=== PATIENT | female | born 1990 | race Two or more races ===

== ENCOUNTER 2022-12-16 17:57 | Inpatient (IN) | payer MEDICAID, OTHER ==
[~2022-12-16] VITALS: Ht 162.6 cm; Wt 58.0 kg
[2022-12-16 19:07] LABS: Eosinophils # (auto) 0 10 ^3/uL (0-0.8); Eosinophils % (auto) 0.1 % (0.0-7.0)
[2022-12-16 19:10] LABS: Basophils # (auto) 0.1 10 ^3/uL (0-0.2); Basophils % (auto) 0.6 % (0.0-2.0); Hematocrit 28.8 % (36.0-46.0); Hemoglobin 9.7 g/dL (12.2-16.2); Lymphocytes # (auto) 0.8 10 ^3/uL (0.4-5.4); Lymphocytes % (auto) 5.9 % (10.0-50.0); Mean Corpuscular Hemoglobin 33.4 pg (28.0-32.0); Mean Corpuscular Hgb Conc. 33.6 g/dL (32.0-36.0); Mean Corpuscular Volume 99.4 fL (80.0-100.0); Monocytes % (auto) 7.1 % (0.0-12.0); Neutrophils # (auto) 11.9 10 ^3/uL (1.6-8.6); Neutrophils % (auto) 86.3 % (37.0-80.0); Nucleated Red Blood Cells % 0.1 %; White Blood Cell 13.8 10^3/uL (4.4-10.8)
[2022-12-16 19:55] LABS: Albumin 2.3 g/dL (3.4-5.0); Calcium 8.2 mg/dL (8.5-10.1); Potassium 3.8 mmol/L (3.5-5.1)
[2022-12-16 19:59] LABS: BUN/Creatinine Ratio 6.3 (10.0-20.0); Bilirubin, Total 7.3 mg/dL (0.2-1.0); Lactic Acid w/Reflex 5.9 mmol/L (0.4-2.0); Total Protein 8.4 g/dL (6.4-8.2)
[2022-12-16 21:58] LABS: INR 1.58 (0.9-1.15)
[2022-12-17] MEDS ORDERED: OXYCODONE W/ ACETAMINOPHEN 5/325MG TABLET PO ONE (03:45)
[2022-12-17] MEDS ORDERED: ONDANSETRON HCL 4 MG/2 ML VIAL IV PRN (06:15)
[2022-12-17] MEDS: SODIUM CHLORIDE 0.9% 1,000 ML IV SCH ×2 (06:40→20:30)
[2022-12-17 07:14] LABS: Basophils # (auto) 0.2 10 ^3/uL (0-0.2); Basophils % (auto) 1.2 % (0.0-2.0); Eosinophils # (auto) 0 10 ^3/uL (0-0.8); Hematocrit 27.9 % (36.0-46.0); Hemoglobin 9.4 g/dL (12.2-16.2); Lymphocytes # (auto) 0.9 10 ^3/uL (0.4-5.4); Lymphocytes % (auto) 6.2 % (10.0-50.0); Mean Corpuscular Hemoglobin 33.3 pg (28.0-32.0); Mean Corpuscular Hgb Conc. 33.7 g/dL (32.0-36.0); Mean Corpuscular Volume 98.9 fL (80.0-100.0); Monocytes # (auto) 1.2 10 ^3/uL (0-1.3); Monocytes % (auto) 8.4 % (0.0-12.0); Neutrophils # (auto) 11.5 10 ^3/uL (1.6-8.6); Neutrophils % (auto) 84.2 % (37.0-80.0); Red Blood Cells 2.82 10^6/uL (4.0-5.20); Red Cell Distribution Width 15.5 % (11.8-14.3); White Blood Cell 13.7 10^3/uL (4.4-10.8)
[2022-12-17 07:30] LABS: INR 1.79 (0.9-1.15); Partial Thromboplastin Time 37.6 sec (24.6-33.4)
[2022-12-17 07:32] LABS: Albumin 2.2 g/dL (3.4-5.0); Potassium 3.9 mmol/L (3.5-5.1)
[2022-12-17 07:35] LABS: BUN/Creatinine Ratio 6.2 (10.0-20.0); Bilirubin, Total 8.3 mg/dL (0.2-1.0); Total Protein 7.8 g/dL (6.4-8.2)
[2022-12-17] MEDS: PANTOPRAZOLE 40 MG/10 ML VIAL INJ IV SCH (09:58)
[2022-12-17 10:08] LABS: Urine Bacteria NONE SEEN /hpf (None Seen); Urine Blood TRACE /uL (Negative); Urine Mucus MANY (None Seen); Urine Specific Gravity 1.026 (1.001-1.035); Urine WBC 27 /hpf (0 - 5)
[2022-12-17] MEDS ORDERED: SODIUM CHLORIDE 0.9% 1,000 ML IV ONE (12:00)
[2022-12-17] MEDS: cefTRIAXone 1GM/50ML D5W 50 ML IV SCH (12:16)
[2022-12-17] MEDS: metroNIDAZOLE 500MG/100ML 100 ML IV SCH ×2 (13:45→22:17)
[2022-12-17] MEDS: FOLIC ACID 1 MG, MULTIPLE VITAMIN 10 ML, MAGNESIUM SULF SDV 50% 8 MEQ, THIAMINE INJ 100... INJ SCH ×5 (15:10)
[2022-12-17] MEDS: traMADol HCL 50 MG TAB PO PRN (20:22)
[2022-12-18 00:50] VITALS: BP 110/59
[2022-12-18 05:00] VITALS: BP 107/63
[2022-12-18 06:19] LABS: BUN/Creatinine Ratio 6.7 (10.0-20.0); Calcium 7.4 mg/dL (8.5-10.1); Potassium 3.2 mmol/L (3.5-5.1)
[2022-12-18] MEDS: metroNIDAZOLE 500MG/100ML 100 ML IV SCH ×3 (06:36→22:28)
[2022-12-18 07:59] LABS: Basophils # (auto) 0.1 10 ^3/uL (0-0.2); Hemoglobin 9.1 g/dL (12.2-16.2); Nucleated Red Blood Cells % 0.1 %
[2022-12-18 08:01] LABS: Basophils % (auto) 0.5 % (0.0-2.0); Eosinophils # (auto) 0.1 10 ^3/uL (0-0.8); Eosinophils % (auto) 0.4 % (0.0-7.0); Hematocrit 26.8 % (36.0-46.0); Lymphocytes # (auto) 1.3 10 ^3/uL (0.4-5.4); Lymphocytes % (auto) 9.6 % (10.0-50.0); Mean Corpuscular Hgb Conc. 34.1 g/dL (32.0-36.0); Mean Corpuscular Volume 99.8 fL (80.0-100.0); Monocytes # (auto) 1.1 10 ^3/uL (0-1.3); Monocytes % (auto) 7.9 % (0.0-12.0); Neutrophils % (auto) 81.6 % (37.0-80.0); Red Blood Cells 2.69 10^6/uL (4.0-5.20); White Blood Cell 13.4 10^3/uL (4.4-10.8)
[2022-12-18 09:00] VITALS: BP 109/65
[2022-12-18] MEDS: cefTRIAXone 1GM/50ML D5W 50 ML IV SCH (09:50)
[2022-12-18 10:03] LABS: Hepatitis A Ab IgM Negative; Hepatitis B Core IgM Negative
[2022-12-18] MEDS: PANTOPRAZOLE 40 MG/10 ML VIAL INJ IV SCH (10:03)
[2022-12-18 10:04] LABS: Hepatitis C Antibody Negative (Negative)
[2022-12-18] MEDS ORDERED: LORazepam 2MG/ML-1ML VIAL IV PRN (10:15)
[2022-12-18] MEDS ORDERED: POTASSIUM CHL 20 Meq TABLET PO ONE (10:15)
[2022-12-18] MEDS: traMADol HCL 50 MG TAB PO PRN (11:41)
[2022-12-18 13:00] VITALS: BP 105/57
[2022-12-18] MEDS: FOLIC ACID 1 MG, MULTIPLE VITAMIN 10 ML, MAGNESIUM SULF SDV 50% 8 MEQ, THIAMINE INJ 100... INJ SCH ×5 (16:27)
[2022-12-18 17:00] VITALS: BP 104/44
[2022-12-18] MEDS ORDERED: phytonadione 10 MG in SODIUM CHL 0.9% 50 ML IV ONE (19:00)
[2022-12-18] MEDS ORDERED: hydrOXYzine 25 MG TAB or CAP PO PRN (19:30)
[2022-12-18 22:00] VITALS: BP 102/66
[2022-12-18] MEDS: methylPREDNISolone SOD SUCC 40 MG/ML VL IV SCH (22:29)
[2022-12-18] MEDS: MIRTAZAPINE 30 MG TAB PO SCH (22:29)
[2022-12-19 05:00] VITALS: BP 100/56
[2022-12-19 06:07] LABS: Basophils # (auto) 0 10 ^3/uL (0-0.2); Basophils % (auto) 0.2 % (0.0-2.0); Eosinophils # (auto) 0 10 ^3/uL (0-0.8); Lymphocytes # (auto) 0.3 10 ^3/uL (0.4-5.4); Lymphocytes % (auto) 3.2 % (10.0-50.0); Monocytes # (auto) 0.3 10 ^3/uL (0-1.3); Monocytes % (auto) 2.8 % (0.0-12.0); Neutrophils # (auto) 9.1 10 ^3/uL (1.6-8.6); Neutrophils % (auto) 93.8 % (37.0-80.0)
[2022-12-19 06:20] LABS: Albumin 1.9 g/dL (3.4-5.0); Calcium 7.7 mg/dL (8.5-10.1); Potassium 4.2 mmol/L (3.5-5.1)
[2022-12-19 06:25] LABS: BUN/Creatinine Ratio 5.2 (10.0-20.0); Total Protein 7.2 g/dL (6.4-8.2)
[2022-12-19] MEDS: metroNIDAZOLE 500MG/100ML 100 ML IV SCH ×3 (06:27→21:46)
[2022-12-19 07:15] LABS: Hemoglobin 9.1 g/dL (12.2-16.2); Red Blood Cells 2.68 10^6/uL (4.0-5.20); White Blood Cell 11.5 10^3/uL (4.4-10.8)
[2022-12-19 07:16] LABS: Mean Corpuscular Hemoglobin 33.8 pg (28.0-32.0); Mean Corpuscular Hgb Conc. 33.6 g/dL (32.0-36.0); Mean Corpuscular Volume 100.7 fL (80.0-100.0)
[2022-12-19 08:49] VITALS: BP 96/50
[2022-12-19] MEDS: cefTRIAXone 1GM/50ML D5W 50 ML IV SCH (09:07)
[2022-12-19] MEDS: methylPREDNISolone SOD SUCC 40 MG/ML VL IV SCH ×2 (09:08→21:46)
[2022-12-19] MEDS: PANTOPRAZOLE 40 MG/10 ML VIAL INJ IV SCH (09:08)
[2022-12-19] MEDS ORDERED: SPIRONOLACTONE 25 MG TAB PO ONE (11:00)
[2022-12-19] MEDS: FOLIC ACID 1 MG, MULTIPLE VITAMIN 10 ML, MAGNESIUM SULF SDV 50% 8 MEQ, THIAMINE INJ 100... INJ SCH ×5 (12:47)
[2022-12-19 13:00] VITALS: BP 96/55
[2022-12-19] MEDS ORDERED: phytonadione 10 MG in SODIUM CHL 0.9% 50 ML IV ONE (16:45)
[2022-12-19 17:00] VITALS: BP 105/69
[2022-12-19] MEDS: traMADol HCL 50 MG TAB PO PRN (17:11)
[2022-12-19] MEDS: MIRTAZAPINE 30 MG TAB PO SCH (21:46)
[2022-12-19 22:00] VITALS: BP 105/66
[2022-12-19 23:14] LABS: INR 2.07 (0.9-1.15)
[2022-12-20 05:00] VITALS: BP 108/71
[2022-12-20 05:36] LABS: Basophils # (auto) 0 10 ^3/uL (0-0.2); Basophils % (auto) 0.1 % (0.0-2.0); Eosinophils # (auto) 0 10 ^3/uL (0-0.8); Mean Corpuscular Volume 102.7 fL (80.0-100.0); Monocytes # (auto) 1.1 10 ^3/uL (0-1.3); Monocytes % (auto) 7.2 % (0.0-12.0)
[2022-12-20 05:39] LABS: Hematocrit 26.8 % (36.0-46.0); Lymphocytes # (auto) 0.8 10 ^3/uL (0.4-5.4); Lymphocytes % (auto) 5.6 % (10.0-50.0); Mean Corpuscular Hemoglobin 34.6 pg (28.0-32.0); Mean Corpuscular Hgb Conc. 33.7 g/dL (32.0-36.0); Neutrophils # (auto) 13.2 10 ^3/uL (1.6-8.6); Neutrophils % (auto) 87.1 % (37.0-80.0); Nucleated Red Blood Cells % 0.2 %; Red Blood Cells 2.61 10^6/uL (4.0-5.20); Red Cell Distribution Width 16.5 % (11.8-14.3); White Blood Cell 15.2 10^3/uL (4.4-10.8)
[2022-12-20] MEDS: metroNIDAZOLE 500MG/100ML 100 ML IV SCH ×3 (05:40→21:59)
[2022-12-20 05:52] LABS: Potassium 3.5 mmol/L (3.5-5.1)
[2022-12-20 06:12] LABS: Albumin 1.8 g/dL (3.4-5.0); BUN/Creatinine Ratio 7.5 (10.0-20.0); Bilirubin, Total 6.4 mg/dL (0.2-1.0); Calcium 7.9 mg/dL (8.5-10.1); Total Protein 6.9 g/dL (6.4-8.2)
[2022-12-20 08:00] VITALS: BP 103/68
[2022-12-20 09:10] VITALS: BP 108/71
[2022-12-20] MEDS: SPIRONOLACTONE 25 MG TAB PO SCH (11:18)
[2022-12-20] MEDS: PANTOPRAZOLE 40 MG/10 ML VIAL INJ IV SCH (11:18)
[2022-12-20] MEDS: cefTRIAXone 1GM/50ML D5W 50 ML IV SCH (11:18)
[2022-12-20] MEDS: methylPREDNISolone SOD SUCC 40 MG/ML VL IV SCH ×2 (11:19→21:53)
[2022-12-20] MEDS: FOLIC ACID 1 MG, MULTIPLE VITAMIN 10 ML, MAGNESIUM SULF SDV 50% 8 MEQ, THIAMINE INJ 100... INJ SCH ×5 (13:31)
[2022-12-20 13:46] VITALS: BP 103/68
[2022-12-20 16:44] VITALS: BP 109/66
[2022-12-20] MEDS: traMADol HCL 50 MG TAB PO PRN (20:27)
[2022-12-20] MEDS: MIRTAZAPINE 30 MG TAB PO SCH (21:53)
[2022-12-20 22:00] VITALS: BP 112/69
[2022-12-21 04:09] LABS: Basophils # (auto) 0 10 ^3/uL (0-0.2); Basophils % (auto) 0.1 % (0.0-2.0); Eosinophils # (auto) 0 10 ^3/uL (0-0.8); Mean Corpuscular Volume 102.9 fL (80.0-100.0); Red Blood Cells 2.72 10^6/uL (4.0-5.20)
[2022-12-21 04:12] LABS: Hematocrit 27.9 % (36.0-46.0); Hemoglobin 9.3 g/dL (12.2-16.2); Lymphocytes # (auto) 0.8 10 ^3/uL (0.4-5.4); Lymphocytes % (auto) 4.9 % (10.0-50.0); Mean Corpuscular Hemoglobin 34.1 pg (28.0-32.0); Mean Corpuscular Hgb Conc. 33.2 g/dL (32.0-36.0); Monocytes # (auto) 1.1 10 ^3/uL (0-1.3); Monocytes % (auto) 7.4 % (0.0-12.0); Neutrophils # (auto) 13.5 10 ^3/uL (1.6-8.6); Neutrophils % (auto) 87.6 % (37.0-80.0); Red Cell Distribution Width 17.3 % (11.8-14.3); White Blood Cell 15.4 10^3/uL (4.4-10.8)
[2022-12-21 04:32] LABS: INR 1.75 (0.9-1.15)
[2022-12-21 04:39] LABS: Albumin 1.6 g/dL (3.4-5.0); Calcium 7.7 mg/dL (8.5-10.1); Potassium 3.6 mmol/L (3.5-5.1)
[2022-12-21 04:41] LABS: BUN/Creatinine Ratio 8.5 (10.0-20.0)
[2022-12-21 04:44] LABS: Bilirubin, Total 5.4 mg/dL (0.2-1.0); Total Protein 6.9 g/dL (6.4-8.2)
[2022-12-21 05:00] VITALS: BP 101/68
[2022-12-21] MEDS: metroNIDAZOLE 500MG/100ML 100 ML IV SCH ×2 (05:27→14:00)
[2022-12-21 08:00] VITALS: BP 97/59
[2022-12-21] MEDS: cefTRIAXone 1GM/50ML D5W 50 ML IV SCH (08:05)
[2022-12-21] MEDS: SPIRONOLACTONE 25 MG TAB PO SCH (08:14)
[2022-12-21] MEDS: PANTOPRAZOLE 40 MG/10 ML VIAL INJ IV SCH (08:15)
[2022-12-21] MEDS: methylPREDNISolone SOD SUCC 40 MG/ML VL IV SCH (08:20)
[2022-12-21 09:00] VITALS: BP 97/59
[2022-12-21] MEDS ORDERED: HYDR-3682 PO (09:35)
[2022-12-21] MEDS ORDERED: CEPH250C PO (09:35)
[2022-12-21] MEDS ORDERED: MIRT1TAB PO (09:35)
[2022-12-21] MEDS ORDERED: SPIR25TA PO (09:35)
[2022-12-21] MEDS: FOLIC ACID 1 MG, MULTIPLE VITAMIN 10 ML, MAGNESIUM SULF SDV 50% 8 MEQ, THIAMINE INJ 100... INJ SCH ×5 (12:00)
[2022-12-21 13:00] VITALS: BP 107/66
[2022-12-21 14:14] VITALS: BP 107/66
[2022-12-22] MEDS ORDERED: methylPREDNISolone SOD SUCC 40 MG/ML VL IV SCH (10:00)
== END 2022-12-21 16:46 | disposition home or self-care (01) | DRG 280 ==
LOC: ER 18:00 → OVERFLOW 12-17 06:08 → CENTRAL 12-17 20:30
PROVIDERS: ADMIT Nurse Practitioner; ATTEND Internal Medicine
DX: K70.11 Alcoholic hepatitis with ascites (principal); A41.9 Sepsis, unspecified organism; E43 Unspecified severe protein-calorie malnutrition; E87.20 Acidosis, unspecified; D69.6 Thrombocytopenia, unspecified; K74.60 Unspecified cirrhosis of liver; F33.1 Major depressive disorder, recurrent, moderate; D64.9 Anemia, unspecified; K72.00 Acute and subacute hepatic failure without coma; F10.20 Alcohol dependence, uncomplicated; K52.9 Noninfective gastroenteritis and colitis, unspecified; F41.9 Anxiety disorder, unspecified; K76.0 Fatty (change of) liver, not elsewhere classified; N39.0 Urinary tract infection, site not specified; B96.20 Unspecified Escherichia coli [E. coli] as the cause of diseases classified elsewhere; Z68.1 Body mass index [BMI] 19.9 or less, adult
CPT/HCPCS: 36415; 74176; 76705; 80048; 80053; 80074; 80320; 81001; 82140; 83605; 83690; 83880; 85025; 85610; 85652; 85730; 87040; 87045; 87086; 87088; 87186; 87427; C9113; G0378; J0696; J3430; J3490

== ENCOUNTER 2023-04-03 11:12 | Emergency (ER) | payer MEDICAID ==
[~2023-04-03] VITALS: Ht 162.6 cm; Wt 59.0 kg
[~2023-04-03 11:12] MED LIST: CEPH250C PO; HYDR-3682 PO; MIRT1TAB PO; SPIR25TA PO
[2023-04-03] MEDS ORDERED: ONDANSETRON HCL 4 MG/2 ML VIAL IV ONE (11:30)
[2023-04-03] MEDS ORDERED: THIAMINE 100mg/ml INJ (200mg/2ml VIAL) IV ONE (11:30)
[2023-04-03] MEDS ORDERED: SODIUM CHLORIDE 0.9% 1,000 ML IV ONE ×2 (11:30)
[2023-04-03 11:33] LABS: Basophils # (auto) 0 10 ^3/uL (0-0.2); Basophils % (auto) 0.3 % (0.0-2.0); Eosinophils # (auto) 0 10 ^3/uL (0-0.8); Hematocrit 28.7 % (36.0-46.0); Monocytes # (auto) 0.5 10 ^3/uL (0-1.3)
[2023-04-03 11:35] LABS: Hemoglobin 9.3 g/dL (12.2-16.2); Lymphocytes # (auto) 1.3 10 ^3/uL (0.4-5.4); Lymphocytes % (auto) 12.5 % (10.0-50.0); Mean Corpuscular Hemoglobin 26.6 pg (28.0-32.0); Mean Corpuscular Hgb Conc. 32.5 g/dL (32.0-36.0); Mean Corpuscular Volume 81.7 fL (80.0-100.0); Monocytes % (auto) 4.7 % (0.0-12.0); Neutrophils # (auto) 8.4 10 ^3/uL (1.6-8.6); Neutrophils % (auto) 82.5 % (37.0-80.0); Nucleated Red Blood Cells % 0.1 %; Red Blood Cells 3.52 10^6/uL (4.0-5.20); Red Cell Distribution Width 21.3 % (11.8-14.3); White Blood Cell 10.2 10^3/uL (4.4-10.8)
[2023-04-03 12:08] LABS: Alanine Aminotransferase 74 U/L (7-40); Albumin 4.1 g/dL (3.2-4.8); Alkaline Phosphatase 126 U/L (46-116); Anion Gap 13 (5-15); Aspartate Aminotransferase 169 U/L (13-40); BUN/Creatinine Ratio 12.4 (10.0-20.0); Blood Alcohol < 3.0 mg/dL (<10); Blood Urea Nitrogen 11 mg/dL (9-23); Carbon Dioxide 24 mmol/L (20-30); Chloride 104 mmol/L (98-107); Glucose 171 mg/dL (74-106); Sodium 141 mmol/L (136-145)
[2023-04-03 12:09] LABS: Bilirubin, Total 2.5 mg/dL (0.2-1.0); Total Protein 8.1 g/dL (5.7-8.2)
[2023-04-03 12:11] LABS: Potassium 2.9 mmol/L (3.5-5.1)
[2023-04-03 13:39] LABS: Urine Bacteria NONE SEEN /hpf (None Seen); Urine Blood Negative /uL (Negative); Urine Clarity HAZY (Clear); Urine Color Yellow (Yellow); Urine Mucus FEW (None Seen); Urine Protein, UAD 1+ (Negative); Urine Specific Gravity 1.024 (1.001-1.035); Urine WBC 21 /hpf (0 - 5); Urine pH 6.5 (5.0-8.0)
[2023-04-03] MEDS: POTASSIUM CHL 20MEQ/100ML 100 ML IV SCH ×2 (16:39→19:07)
[2023-04-03 21:28] LABS: Chloride 107 mmol/L (98-107); Potassium 3.6 mmol/L (3.5-5.1); Sodium 139 mmol/L (136-145)
[2023-04-03 21:29] LABS: Anion Gap 8 (5-15); Calcium 9.2 mg/dL (8.7-10.4); Carbon Dioxide 24 mmol/L (20-30)
[2023-04-03 21:34] LABS: BUN/Creatinine Ratio 10.3 (10.0-20.0); Blood Urea Nitrogen 9 mg/dL (9-23); Glucose 103 mg/dL (74-106)
[2023-04-03] MEDS ORDERED: LORazepam 2MG/ML-1ML VIAL IV ONE (23:30)
[2023-04-03] MEDS ORDERED: ACETAMINOPHEN 500 MG TAB PO ONE (23:30)
[2023-04-04 08:00] VITALS: PULSE 94
[2023-04-04] MEDS ORDERED: cefTRIAXone SOD 1,000 MG VL IM ONE (10:45)
[2023-04-04] MEDS ORDERED: cefTRIAXone 1GM/50ML D5W 50 ML IV ONE (11:45)
[2023-04-04] MEDS ORDERED: ACETAMINOPHEN 500 MG TAB PO ONE (15:15)
[2023-04-04 20:30] VITALS: PULSE 98; RESP 18; O2SAT 96
[2023-04-04] MEDS ORDERED: MIRTAZAPINE 30 MG TAB PO SCH (22:00)
[2023-04-05 07:48] VITALS: RESP 15; O2SAT 98
[2023-04-05] MEDS ORDERED: ACETAMINOPHEN 500 MG TAB PO ONE (16:45)
[2023-04-05 18:42] VITALS: BP 128/70; PULSE 100; RESP 15; TEMP 98.2; O2SAT 98
== END 2023-04-05 19:15 | disposition short-term general hospital (02) ==
LOC: EDBD 11:12 → ER 11:12
DX: R45.851 Suicidal ideations (principal); R10.2 Pelvic and perineal pain; R74.8 Abnormal levels of other serum enzymes; F10.10 Alcohol abuse, uncomplicated; F32.9 Major depressive disorder, single episode, unspecified; Z90.49 Acquired absence of other specified parts of digestive tract; Y90.9 Presence of alcohol in blood, level not specified
CPT/HCPCS: 36415; 80048; 80053; 80320; 81001; 84702; 85025; 96361; 96365; 96375; 99285; J0696; J2060; J2405; J3411; J3480; J7030

== ENCOUNTER 2023-06-22 14:20 | Emergency (ER) | payer MEDICAID ==
[~2023-06-22] VITALS: Ht 162.6 cm; Wt 56.0 kg
[2023-06-22] MEDS ORDERED: SODIUM CHLORIDE 0.9% 1,000 ML IV ONE (14:45)
[2023-06-22] MEDS ORDERED: ONDANSETRON HCL 4 MG/2 ML VIAL IV ONE (15:15)
[2023-06-22] MEDS ORDERED: SODIUM CHLORIDE 0.9% 1,000 ML IVB ONE (15:15)
[2023-06-22] MEDS ORDERED: THIAMINE 100mg/ml INJ (200mg/2ml VIAL) IV ONE (15:15)
[2023-06-22 15:54] LABS: Acetaminophen < 2.0 UG/ML (10.0-20.0)
[2023-06-22 15:58] LABS: Alanine Aminotransferase 79 U/L (7-40); Albumin 4.3 g/dL (3.2-4.8); Alkaline Phosphatase 180 U/L (46-116); Anion Gap 16 (5-15); Aspartate Aminotransferase 187 U/L (13-40); BUN/Creatinine Ratio 10.1 (10.0-20.0); Basophils # (auto) 0 10 ^3/uL (0-0.2); Basophils % (auto) 0.4 % (0.0-2.0); Blood Urea Nitrogen 9 mg/dL (9-23); Calcium 8.8 mg/dL (8.7-10.4); Carbon Dioxide 18 mmol/L (20-30); Chloride 103 mmol/L (98-107); Eosinophils # (auto) 0 10 ^3/uL (0-0.8); Eosinophils % (auto) 0.2 % (0.0-7.0); Glucose 138 mg/dL (74-106); Lymphocytes # (auto) 0.5 10 ^3/uL (0.4-5.4); Lymphocytes % (auto) 18.9 % (10.0-50.0); Mean Corpuscular Hemoglobin 30.3 pg (28.0-32.0); Mean Corpuscular Hgb Conc. 32.4 g/dL (32.0-36.0); Mean Corpuscular Volume 93.6 fL (80.0-100.0); Monocytes # (auto) 0.3 10 ^3/uL (0-1.3); Neutrophils # (auto) 1.8 10 ^3/uL (1.6-8.6); Neutrophils % (auto) 68.5 % (37.0-80.0); Nucleated Red Blood Cells % 0.3 %; Potassium 3.4 mmol/L (3.5-5.1); Red Blood Cells 3.96 10^6/uL (4.0-5.20); Sodium 137 mmol/L (136-145); Total Protein 8.8 g/dL (5.7-8.2); White Blood Cell 2.6 10^3/uL (4.4-10.8)
[2023-06-22 16:00] VITALS: PULSE 99; RESP 18; O2SAT 96
[2023-06-22 16:02] LABS: Salicylate < 3.0 mg/dL (2.8-20.0)
[2023-06-22 19:05] LABS: Urine Bacteria FEW /hpf (None Seen); Urine Blood Negative /uL (Negative); Urine Clarity Clear (Clear); Urine Color Yellow (Yellow); Urine Mucus FEW (None Seen); Urine Protein, UAD TRACE (Negative); Urine Specific Gravity 1.011 (1.001-1.035); Urine Urobilinogen Normal (Negative); Urine WBC <1 /hpf (0 - 5)
[2023-06-22 19:17] LABS: Amphetamine Screen, Urine Neg (NEGATIVE); Barbiturate Scree,Urine Neg (NEGATIVE); Benzodiazephine Screen, Urine Neg (NEGATIVE); Cocaine Screen, Urine Neg (NEGATIVE); Opiate Scree,Urine Neg (NEGATIVE)
[2023-06-22 19:18] LABS: Cannabinoid Screen, Urine Neg (NEGATIVE); Phencyclidine Screen, Urine Neg (NEGATIVE)
[2023-06-22 19:36] LABS: Alanine Aminotransferase 67 U/L (7-40); Albumin 3.9 g/dL (3.2-4.8); Alkaline Phosphatase 155 U/L (46-116); Anion Gap 12 (5-15); Aspartate Aminotransferase 163 U/L (13-40); BUN/Creatinine Ratio 6.5 (10.0-20.0); Blood Urea Nitrogen 5 mg/dL (9-23); Carbon Dioxide 19 mmol/L (20-30); Chloride 109 mmol/L (98-107); Glucose 104 mg/dL (74-106); Potassium 3.5 mmol/L (3.5-5.1); Sodium 140 mmol/L (136-145)
[2023-06-22 19:37] LABS: Bilirubin, Total 1.7 mg/dL (0.2-1.0); Total Protein 8.1 g/dL (5.7-8.2)
[2023-06-22 22:37] LABS: Alanine Aminotransferase 63 U/L (7-40); Albumin 3.8 g/dL (3.2-4.8); Alkaline Phosphatase 151 U/L (46-116); Anion Gap 11 (5-15); Aspartate Aminotransferase 155 U/L (13-40); Calcium 8.2 mg/dL (8.7-10.4); Carbon Dioxide 20 mmol/L (20-30); Chloride 108 mmol/L (98-107); Glucose 102 mg/dL (74-106); Potassium 3.6 mmol/L (3.5-5.1); Sodium 139 mmol/L (136-145)
[2023-06-22 22:38] LABS: BUN/Creatinine Ratio 6.3 (10.0-20.0); Bilirubin, Total 1.7 mg/dL (0.2-1.0); Blood Urea Nitrogen < 5 mg/dL (9-23)
[2023-06-22 22:48] VITALS: PULSE 108; RESP 25; O2SAT 94
[2023-06-23] MEDS ORDERED: ACETAMINOPHEN 325 MG TAB PO ONE (01:15)
[2023-06-23 02:49] LABS: Alanine Aminotransferase 63 U/L (7-40); Albumin 3.8 g/dL (3.2-4.8); Alkaline Phosphatase 151 U/L (46-116); Anion Gap 12 (5-15); Aspartate Aminotransferase 148 U/L (13-40); BUN/Creatinine Ratio 5.9 (10.0-20.0); Bilirubin, Total 1.6 mg/dL (0.2-1.0); Blood Urea Nitrogen 5 mg/dL (9-23); Calcium 8.3 mg/dL (8.7-10.4); Carbon Dioxide 20 mmol/L (20-30); Chloride 107 mmol/L (98-107); Glucose 97 mg/dL (74-106); Potassium 3.4 mmol/L (3.5-5.1); Sodium 139 mmol/L (136-145)
[2023-06-23 07:25] VITALS: BP 128/55; PULSE 109; RESP 17; TEMP 98.2; O2SAT 98
== END 2023-06-23 08:20 | disposition still patient (30) ==
LOC: ER 14:20
DX: F10.129 Alcohol abuse with intoxication, unspecified (principal); F32.9 Major depressive disorder, single episode, unspecified; Z98.890 Other specified postprocedural states; Z79.899 Other long term (current) drug therapy; Y90.0 Blood alcohol level of less than 20 mg/100 ml
CPT/HCPCS: 36415; 80053; 80307; 80320; 80329; 81001; 83930; 85025; 96361; 96374; 96375; 99285; J2405; J3411; J7030

== ENCOUNTER 2023-08-28 19:05 | Emergency (ER) | payer MEDICAID ==
[~2023-08-28] VITALS: Ht 162.6 cm; Wt 61.5 kg
[2023-08-28] MEDS: SODIUM CHLORIDE 0.9% 2,000 ML IV ONE (20:32)
[2023-08-28] MEDS: THIAMINE 100mg/ml INJ (200mg/2ml VIAL) IV ONE (20:50)
[2023-08-28] MEDS: ONDANSETRON HCL 4 MG/2 ML VIAL IV ONE (20:50)
[2023-08-28 21:16] LABS: Eosinophils # (auto) 0 10 ^3/uL (0-0.8); Monocytes # (auto) 0.5 10 ^3/uL (0-1.3)
[2023-08-28 21:17] LABS: Basophils # (auto) 0.1 10 ^3/uL (0-0.2); Basophils % (auto) 0.6 % (0.0-2.0); Hematocrit 37.2 % (36.0-46.0); Hemoglobin 12.7 g/dL (12.2-16.2); Lymphocytes # (auto) 0.9 10 ^3/uL (0.4-5.4); Lymphocytes % (auto) 11.1 % (10.0-50.0); Mean Corpuscular Hemoglobin 31.3 pg (28.0-32.0); Mean Corpuscular Volume 91.9 fL (80.0-100.0); Monocytes % (auto) 5.7 % (0.0-12.0); Neutrophils % (auto) 82.6 % (37.0-80.0); Red Blood Cells 4.05 10^6/uL (4.0-5.20); White Blood Cell 8.4 10^3/uL (4.4-10.8)
[2023-08-28 21:23] LABS: Chloride 104 mmol/L (98-107); Potassium 3.1 mmol/L (3.5-5.1); Sodium 140 mmol/L (136-145)
[2023-08-28 21:24] LABS: Anion Gap 15 (5-15); Calcium 10.2 mg/dL (8.5-10.1); Carbon Dioxide 21 mmol/L (20-30)
[2023-08-28 21:29] LABS: Blood Alcohol < 3.0 mg/dL (<10); Blood Urea Nitrogen 14 mg/dL (9-23); Glucose 155 mg/dL (74-106)
[2023-08-28 23:25] LABS: Urine Bacteria NONE SEEN /hpf (None Seen); Urine Blood TRACE /uL (Negative); Urine Clarity HAZY (Clear); Urine Color Yellow (Yellow); Urine Hyaline Cast MANY /lpf (0 - 2); Urine Mucus FEW (None Seen); Urine Protein, UAD 2+ (Negative); Urine Specific Gravity 1.027 (1.001-1.035); Urine Urobilinogen Normal (Negative); Urine WBC 8 /hpf (0 - 5); Urine pH 6.5 (5.0-8.0)
[2023-08-28 23:35] LABS: Amphetamine Screen, Urine Neg (NEGATIVE); Barbiturate Scree,Urine Neg (NEGATIVE); Benzodiazephine Screen, Urine Neg (NEGATIVE)
[2023-08-28 23:36] LABS: Cannabinoid Screen, Urine Pos (NEGATIVE); Cocaine Screen, Urine Neg (NEGATIVE); Opiate Scree,Urine Neg (NEGATIVE); Phencyclidine Screen, Urine Neg (NEGATIVE)
[2023-08-28] MEDS: NITROFURANTOIN 100 mg CAP PO ONE (23:52)
[2023-08-29] MEDS: KETOROLAC TROMETH 30 MG/ML 1ML VIAL IM ONE (01:05)
[2023-08-29] MEDS ORDERED: NITR-87 PO (01:29)
[2023-08-29] MEDS ORDERED: DICY10CA PO (01:29)
[2023-08-29] MEDS ORDERED: IBUP-1454 PO (01:29)
[2023-08-29] MEDS ORDERED: ZOFR4T PO (01:29)
[2023-08-29 05:30] VITALS: PULSE 100; RESP 21; O2SAT 96
[2023-08-29] MEDS: traMADol HCL 50 MG TAB PO ONE (05:39)
[2023-08-29 07:32] VITALS: TEMP 98.5
[2023-08-29 07:35] VITALS: PULSE 110; RESP 12; O2SAT 95
[2023-08-29] MEDS: POTASSIUM EFFERVESENT TAB 25 MEQ PO ONE (07:53)
[2023-08-29] MEDS: SODIUM CHLORIDE 0.9% 1,000 ML IVB ONE (08:35)
[2023-08-29] MEDS: LORazepam 2MG/ML-1ML VIAL IV ONE (08:44)
[2023-08-29 09:15] LABS: Magnesium 1.6 mg/dL (1.6-2.6)
[2023-08-29] MEDS ORDERED: HYDR-4902 PO (16:58)
[2023-08-29] MEDS ORDERED: LORazepam 2MG/ML-1ML VIAL IV ONE (17:00)
[2023-08-29 17:27] VITALS: BP 121/79; PULSE 101; RESP 15; O2SAT 95
== END 2023-08-29 17:44 | disposition home or self-care (01) ==
LOC: ER 19:05 → EDBD 19:05 → ER 08-29 17:44
DX: N39.0 Urinary tract infection, site not specified (principal); R10.2 Pelvic and perineal pain; F10.10 Alcohol abuse, uncomplicated; Z90.49 Acquired absence of other specified parts of digestive tract; Z79.899 Other long term (current) drug therapy
CPT/HCPCS: 36415; 80048; 80307; 80320; 81001; 83690; 83735; 84702; 85025; 93005; 96361; 96372; 96374; 96375; 99285; J1885; J2060; J2405; J3411; J7030; 74176

== ENCOUNTER 2024-02-15 17:37 | Inpatient (IN) | payer MEDICAID ==
[~2024-02-15] VITALS: Ht 162.6 cm; Wt 61.9 kg
[~2024-02-15 17:37] MED LIST changes: +DICY10CA PO; +HYDR-4902 PO; +IBUP-1454 PO; +NITR-87 PO; +ZOFR4T PO
[2024-02-15] MEDS: HYDROcodone-ACET 10/325MG TAB PO ONE (22:23)
[2024-02-16 00:30] VITALS: PULSE 103; RESP 17; O2SAT 98
[2024-02-16] MEDS: ONDANSETRON ODT 4 MG TAB PO ONE (00:56)
[2024-02-16] MEDS: SODIUM CHLORIDE 0.9% 1,000 ML IV ONE ×2 (03:52→12:15)
[2024-02-16] MEDS: ONDANSETRON HCL 4 MG/2 ML VIAL IV ONE ×2 (03:58→13:05)
[2024-02-16] MEDS: LORazepam 2MG/ML-1ML VIAL IV ONE (05:57)
[2024-02-16 06:39] LABS: Basophils # (auto) 0 10 ^3/uL (0-0.2); Basophils % (auto) 0.2 % (0.0-2.0); Eosinophils # (auto) 0 10 ^3/uL (0-0.8); Hematocrit 33.9 % (36.0-46.0); Hemoglobin 11.7 g/dL (12.2-16.2); Lymphocytes # (auto) 1.2 10 ^3/uL (0.4-5.4); Lymphocytes % (auto) 13.7 % (10.0-50.0); Mean Corpuscular Hemoglobin 31.4 pg (28.0-32.0); Mean Corpuscular Hgb Conc. 34.5 g/dL (32.0-36.0); Mean Corpuscular Volume 91.2 fL (80.0-100.0); Monocytes # (auto) 0.7 10 ^3/uL (0-1.3); Monocytes % (auto) 8.6 % (0.0-12.0); Neutrophils # (auto) 6.8 10 ^3/uL (1.6-8.6); Neutrophils % (auto) 77.5 % (37.0-80.0); Platelet Count (auto) 136 10^3/uL (140-450); Red Blood Cells 3.72 10^6/uL (4.0-5.20); White Blood Cell 8.7 10^3/uL (4.4-10.8)
[2024-02-16 06:53] LABS: Alanine Aminotransferase 172 U/L (7-40); Albumin 3.8 g/dL (3.2-4.8); Alkaline Phosphatase 179 U/L (46-116); Anion Gap 9 (5-15); Aspartate Aminotransferase 474 U/L (13-40); BUN/Creatinine Ratio 11.2 (10.0-20.0); Blood Urea Nitrogen 11 mg/dL (9-23); Calcium 8.1 mg/dL (8.7-10.4); Carbon Dioxide 23 mmol/L (20-30); Chloride 103 mmol/L (98-107); Glucose 111 mg/dL (74-106); Potassium 3.6 mmol/L (3.5-5.1); Sodium 135 mmol/L (136-145)
[2024-02-16 06:54] LABS: Bilirubin, Total 3.3 mg/dL (0.2-1.0); Total Protein 7.4 g/dL (5.7-8.2)
[2024-02-16 07:47] VITALS: RESP 18; O2SAT 98
[2024-02-16] MEDS: PANTOPRAZOLE 40 MG/10 ML VIAL INJ IV ONE (13:06)
[2024-02-16] MEDS ORDERED: DOCUSATE SOD 100 MG CAP PO PRN (14:00)
[2024-02-16] MEDS ORDERED: NITROGLYCERIN 0.4 MG SL TAB SL PRN (14:00)
[2024-02-16] MEDS: chlordiazePOXIDE HCL 25 MG CAP PO SCH (14:41)
[2024-02-16 16:20] LABS: Blood Alcohol < 3.0 mg/dL (<10)
[2024-02-16 16:57] LABS: Lipase 42 U/L (12-53)
[2024-02-16 22:54] LABS: INR 1.31 (0.9-1.15); Partial Thromboplastin Time 30.3 SEC (24.5-34.5); Prothrombin Time 13.6 sec (9.3-11.8)
[2024-02-17] MEDS: ONDANSETRON HCL 4 MG/2 ML VIAL IV PRN (01:20)
[2024-02-17] MEDS: MORPHINE SULFATE INJ 2 MG/ml SYRG IV PRN (01:21)
[2024-02-17 01:35] VITALS: PULSE 94; RESP 14; O2SAT 99
[2024-02-17 04:51] LABS: Amphetamine Screen, Urine Neg (NEGATIVE); Barbiturate Scree,Urine Neg (NEGATIVE); Benzodiazephine Screen, Urine Pos (NEGATIVE); Cannabinoid Screen, Urine Neg (NEGATIVE); Cocaine Screen, Urine Neg (NEGATIVE); Opiate Scree,Urine Pos (NEGATIVE); Phencyclidine Screen, Urine Neg (NEGATIVE)
[2024-02-17 04:59] LABS: Urine Bacteria FEW /hpf (None Seen); Urine Blood 3+ /uL (Negative); Urine Clarity Turbid (Clear); Urine Color Dark-Yellow (Yellow); Urine Mucus FEW (None Seen); Urine Protein, UAD 3+ (Negative); Urine Specific Gravity 1.026 (1.001-1.035); Urine Urobilinogen 12 mg/dL (Negative); Urine WBC 4 /hpf (0 - 5)
[2024-02-17 05:53] LABS: Basophils # (auto) 0 10 ^3/uL (0-0.2); Basophils % (auto) 0.2 % (0.0-2.0); Eosinophils # (auto) 0 10 ^3/uL (0-0.8); Eosinophils % (auto) 0.9 % (0.0-7.0); Hematocrit 32.4 % (36.0-46.0); Hemoglobin 11.3 g/dL (12.2-16.2); Lymphocytes # (auto) 1.4 10 ^3/uL (0.4-5.4); Mean Corpuscular Hemoglobin 32.4 pg (28.0-32.0); Mean Corpuscular Volume 92.6 fL (80.0-100.0); Monocytes # (auto) 0.4 10 ^3/uL (0-1.3); Monocytes % (auto) 7.3 % (0.0-12.0); Neutrophils # (auto) 3.1 10 ^3/uL (1.6-8.6); Neutrophils % (auto) 62.6 % (37.0-80.0); Platelet Count (auto) 87 10^3/uL (140-450); Red Blood Cells 3.49 10^6/uL (4.0-5.20); Red Cell Distribution Width 14.7 % (11.8-14.3); White Blood Cell 4.9 10^3/uL (4.4-10.8)
[2024-02-17 06:01] LABS: Alanine Aminotransferase 162 U/L (7-40); Albumin 3.6 g/dL (3.2-4.8); Alkaline Phosphatase 177 U/L (46-116); Anion Gap 6 (5-15); Aspartate Aminotransferase 420 U/L (13-40); BUN/Creatinine Ratio 7.9 (10.0-20.0); Blood Urea Nitrogen 9 mg/dL (9-23); Calcium 8.7 mg/dL (8.7-10.4); Carbon Dioxide 24 mmol/L (20-30); Chloride 104 mmol/L (98-107); Glucose 128 mg/dL (74-106); Potassium 3.2 mmol/L (3.5-5.1); Sodium 134 mmol/L (136-145)
[2024-02-17 06:02] LABS: Bilirubin, Total 3.2 mg/dL (0.2-1.0); Total Protein 6.9 g/dL (5.7-8.2)
[2024-02-17 07:28] VITALS: PULSE 100; RESP 14; O2SAT 96
[2024-02-17 08:39] LABS: Platelet Estimate Decreased
[2024-02-17] MEDS: chlordiazePOXIDE HCL 25 MG CAP PO SCH (10:05)
[2024-02-17] MEDS: SOD CHL 0.9%/ KCL 40MEQ 1,000 ML IV ONE (11:05)
[2024-02-17 20:00] VITALS: PULSE 99; RESP 16; O2SAT 96
[2024-02-18 04:06] LABS: Alanine Aminotransferase 139 U/L (7-40); Albumin 3.3 g/dL (3.2-4.8); Alkaline Phosphatase 170 U/L (46-116); Anion Gap 7 (5-15); Aspartate Aminotransferase 322 U/L (13-40); BUN/Creatinine Ratio 7.1 (10.0-20.0); Blood Urea Nitrogen 6 mg/dL (9-23); Calcium 8.5 mg/dL (8.7-10.4); Carbon Dioxide 25 mmol/L (20-30); Chloride 105 mmol/L (98-107); Glucose 87 mg/dL (74-106); Potassium 3.6 mmol/L (3.5-5.1); Sodium 137 mmol/L (136-145)
[2024-02-18 04:07] LABS: Bilirubin, Total 3.4 mg/dL (0.2-1.0); Total Protein 6.8 g/dL (5.7-8.2)
[2024-02-18] MEDS: LACTULOSE 20Gm/30ML SOLN PO PRN (07:13)
[2024-02-18 09:52] LABS: Hepatitis B Core Total AB Negative (Negative)
[2024-02-18] MEDS: THIAMINE HCL 100 MG TAB PO SCH (11:24)
[2024-02-18] MEDS: chlordiazePOXIDE HCL 25 MG CAP PO SCH (11:24)
[2024-02-18 12:03] LABS: Hepatitis A Ab IgM Negative; Hepatitis A Total Antibody Positive (Negative); Hepatitis B Core IgM Negative
[2024-02-18 12:04] LABS: Hepatitis B Surface Antibody Positive (Negative); Hepatitis B Surface Antigen Negative (Negative); Hepatitis C Antibody Negative (Negative)
[2024-02-18 13:06] LABS: Anti-Nuclear Antibody Direct Negative (Negative)
[2024-02-18] MEDS: D5W/LACTATED RINGERS 1,000 ML IV SCH (13:37)
[2024-02-18] MEDS: METOCLOPRAMIDE HCL 5MG/ml INJ 2ml VIAL IV PRN (14:57)
[2024-02-18 20:00] VITALS: BP 118/73; PULSE 101; PULSE 102; RESP 16; RESP 18; TEMP 98; O2SAT 95
[2024-02-19] VITALS (8 sets, daily range): BP systolic 107–117; BP diastolic 59–70; PULSE 65–101; RESP 16–18; TEMP 98.3–99.2; O2SAT 96–99
[2024-02-19] MEDS: chlordiazePOXIDE HCL 25 MG CAP PO SCH (05:45)
[2024-02-19 06:21] LABS: Alanine Aminotransferase 108 U/L (7-40); Alkaline Phosphatase 150 U/L (46-116); Anion Gap 5 (5-15); Calcium 8.6 mg/dL (8.7-10.4); Carbon Dioxide 28 mmol/L (20-30); Chloride 105 mmol/L (98-107); Glucose 99 mg/dL (74-106); Potassium 3.3 mmol/L (3.5-5.1); Sodium 138 mmol/L (136-145)
[2024-02-19 06:22] LABS: Albumin 3.1 g/dL (3.2-4.8); Aspartate Aminotransferase 214 U/L (13-40); Bilirubin, Total 3.5 mg/dL (0.2-1.0); Total Protein 6.3 g/dL (5.7-8.2)
[2024-02-19 06:24] LABS: BUN/Creatinine Ratio 6.9 (10.0-20.0); Blood Urea Nitrogen < 5 mg/dL (9-23)
[2024-02-19] MEDS: METOCLOPRAMIDE HCL 5MG/ml INJ 2ml VIAL IV ONE (11:45)
[2024-02-19] MEDS: POTASSIUM EFFERVESENT TAB 25 MEQ PO ONE ×2 (11:45→11:46)
[2024-02-19 12:54] LABS: Urine Bacteria MOD /hpf (None Seen); Urine Blood 3+ /uL (Negative); Urine Clarity Clear (Clear); Urine Color Yellow (Yellow); Urine Protein, UAD Negative (Negative); Urine Specific Gravity 1.006 (1.001-1.035); Urine Urobilinogen 3 mg/dL (Negative); Urine WBC <1 /hpf (0 - 5)
[2024-02-19] MEDS: POLYETHYLENE GLYCOL 17 GM PWDR PO ONE (13:24)
[2024-02-20 04:58] VITALS: BP 116/68; PULSE 86; RESP 18; TEMP 98; O2SAT 100
[2024-02-20 09:00] VITALS: BP 104/58; PULSE 94; RESP 18; TEMP 98; O2SAT 98
[2024-02-20 13:00] VITALS: BP 110/62; PULSE 92; RESP 18; TEMP 97.8; O2SAT 98
[2024-02-20 17:00] VITALS: BP 120/63; PULSE 90; RESP 22; TEMP 98.3; O2SAT 100
[2024-02-20] MEDS: POTASSIUM CHL 20 Meq TABLET PO ONE (17:53)
[2024-02-20] MEDS: cefTRIAXone 1GM/50ML D5W 50 ML IV ONE (17:54)
[2024-02-20 21:00] VITALS: BP 133/82; PULSE 111; RESP 18; TEMP 97.7; O2SAT 96
[2024-02-21 01:00] VITALS: BP 121/70; PULSE 86; RESP 17; TEMP 97.9; O2SAT 99
[2024-02-21 05:00] VITALS: BP 106/65; PULSE 87; RESP 17; TEMP 98.2; O2SAT 96
[2024-02-21 08:30] VITALS: RESP 12
[2024-02-21 09:00] VITALS: BP 109/69; PULSE 95; RESP 17; TEMP 98.7; O2SAT 97
[2024-02-21] MEDS: IOHEXOL 300 MG/ML 100ML BOTTLE IJ ONE (09:06)
[2024-02-21] MEDS: cefTRIAXone 1GM/50ML D5W 50 ML IV SCH (11:27)
[2024-02-21 13:00] VITALS: BP 110/60; PULSE 83; RESP 17; TEMP 97.9; O2SAT 96
[2024-02-21] MEDS: hydrOXYzine 25 MG TAB or CAP PO PRN (15:15)
[2024-02-21] MEDS ORDERED: CEPH250C PO (15:57)
[2024-02-21] MEDS ORDERED: HYDR25CA PO (15:57)
[2024-02-21] MEDS ORDERED: KETO2CRE4 TOP (15:57)
[2024-02-21 16:58] VITALS: BP 104/65; PULSE 80; RESP 17; TEMP 98.2; O2SAT 96
== END 2024-02-21 16:30 | disposition home or self-care (01) | DRG 280 ==
LOC: EDBD 17:37 → ER 17:37 → OVERFLOW 02-16 14:04 → CENTRAL 02-16 23:18 → OVERFLOW 02-16 23:59 → WEST WING 02-18 18:40
PROVIDERS: ADMIT Nurse Practitioner Family; ATTEND Internal Medicine
DX: K70.10 Alcoholic hepatitis without ascites (principal); N17.0 Acute kidney failure with tubular necrosis; G92.8 Other toxic encephalopathy; K76.6 Portal hypertension; D68.9 Coagulation defect, unspecified; R16.2 Hepatomegaly with splenomegaly, not elsewhere classified; D64.9 Anemia, unspecified; D69.59 Other secondary thrombocytopenia; K74.60 Unspecified cirrhosis of liver; B15.9 Hepatitis A without hepatic coma; K59.00 Constipation, unspecified; N39.0 Urinary tract infection, site not specified; F32.A Depression, unspecified; F41.9 Anxiety disorder, unspecified; F10.129 Alcohol abuse with intoxication, unspecified; E87.6 Hypokalemia; R31.29 Other microscopic hematuria; Y90.9 Presence of alcohol in blood, level not specified; F10.139 Alcohol abuse with withdrawal, unspecified; K76.0 Fatty (change of) liver, not elsewhere classified; Z79.1 Long term (current) use of non-steroidal anti-inflammatories (NSAID); Z79.899 Other long term (current) drug therapy; Z90.49 Acquired absence of other specified parts of digestive tract; Z82.49 Family history of ischemic heart disease and other diseases of the circulatory system; Y92.9 Unspecified place or not applicable; T51.0X1A Toxic effect of ethanol, accidental (unintentional), initial encounter
CPT/HCPCS: 36415; 74018; 74176; 74177; 76705; 80053; 80074; 80307; 80320; 81001; 81025; 82140; 82270; 83690; 85025; 85610; 85730; 86038; 86704; 86706; 86708; 86803; 87086; 87088; 87186; 87340; 96374; 96375; 99291; G0378; J2405; J2470; Q0162

== ENCOUNTER 2024-02-23 01:22 | Emergency (ER) | payer MEDICAID ==
[~2024-02-23] VITALS: Ht 160 cm; Wt 65.0 kg
[~2024-02-23 01:22] MED LIST changes: -DICY10CA PO; -HYDR-3682 PO; -HYDR-4902 PO; +HYDR25CA PO; -IBUP-1454 PO; +KETO2CRE4 TOP; -MIRT1TAB PO; -NITR-87 PO; -SPIR25TA PO; -ZOFR4T PO
[2024-02-23 01:27] VITALS: BP 139/85; PULSE 114; RESP 24; O2SAT 99
[2024-02-23] MEDS: LORazepam 2MG/ML-1ML VIAL IM ONE (01:50)
[2024-02-23 02:21] LABS: Alkaline Phosphatase 154 U/L (46-116)
[2024-02-23 02:22] LABS: Alanine Aminotransferase 90 U/L (7-40); Albumin 3.7 g/dL (3.2-4.8); Anion Gap 10 (5-15); Aspartate Aminotransferase 162 U/L (13-40); Bilirubin, Total 1.8 mg/dL (0.2-1.0); Carbon Dioxide 24 mmol/L (20-30); Chloride 110 mmol/L (98-107); Glucose 109 mg/dL (74-106); Potassium 3.1 mmol/L (3.5-5.1); Sodium 144 mmol/L (136-145); Total Protein 7.4 g/dL (5.7-8.2)
[2024-02-23 02:26] LABS: Basophils # (auto) 0 10 ^3/uL (0-0.2); Basophils % (auto) 0.7 % (0.0-2.0); Eosinophils # (auto) 0.1 10 ^3/uL (0-0.8); Eosinophils % (auto) 1.8 % (0.0-7.0); Hematocrit 36.5 % (36.0-46.0); Hemoglobin 12.3 g/dL (12.2-16.2); Lymphocytes # (auto) 2.5 10 ^3/uL (0.4-5.4); Lymphocytes % (auto) 43.3 % (10.0-50.0); Mean Corpuscular Hemoglobin 31.9 pg (28.0-32.0); Mean Corpuscular Hgb Conc. 33.7 g/dL (32.0-36.0); Mean Corpuscular Volume 94.6 fL (80.0-100.0); Monocytes # (auto) 0.5 10 ^3/uL (0-1.3); Monocytes % (auto) 8.7 % (0.0-12.0); Neutrophils # (auto) 2.7 10 ^3/uL (1.6-8.6); Neutrophils % (auto) 45.5 % (37.0-80.0); Platelet Count (auto) 130 10^3/uL (140-450); Red Blood Cells 3.85 10^6/uL (4.0-5.20); Red Cell Distribution Width 16.2 % (11.8-14.3); White Blood Cell 5.8 10^3/uL (4.4-10.8)
[2024-02-23 02:29] LABS: Blood Alcohol 350.3 mg/dL (<10)
[2024-02-23 02:33] LABS: Salicylate < 3.0 mg/dL (2.8-20.0)
[2024-02-23 02:42] LABS: BUN/Creatinine Ratio 7.4 (10.0-20.0); Blood Urea Nitrogen < 5 mg/dL (9-23)
[2024-02-23 03:23] LABS: Acetaminophen < 2.0 UG/ML (10.0-20.0)
[2024-02-23] MEDS ORDERED: SODIUM CHLORIDE 0.9% 3,000 ML IV ONE (04:30)
== END 2024-02-23 04:55 | disposition left against medical advice (07) ==
LOC: EDBD 01:22 → ER 01:22
DX: S09.8XXA Other specified injuries of head, initial encounter (principal); F10.129 Alcohol abuse with intoxication, unspecified; Z90.49 Acquired absence of other specified parts of digestive tract; Y90.8 Blood alcohol level of 240 mg/100 ml or more
CPT/HCPCS: 36415; 70450; 72125; 80053; 80320; 80329; 85025; 96372

== ENCOUNTER 2024-02-24 14:31 | Inpatient (IN) | payer MEDICAID ==
[~2024-02-24] VITALS: Ht 162.6 cm; Wt 66.8 kg
[2024-02-24] MEDS: SODIUM CHLORIDE 0.9% 2,000 ML IV ONE (14:45)
[2024-02-24] MEDS: FLUMAZENIL 0.1 MG/ML INJ 10ML MDV IV ONE ×3 (14:53→15:15)
[2024-02-24] MEDS: SODIUM CHLORIDE 0.9% 1,000 ML IV ONE ×2 (15:11→19:30)
[2024-02-24] MEDS: NALOXONE HCL 0.4 MG/ML VIAL IV ONE (15:11)
[2024-02-24] MEDS: NALOXONE HCL 1MG/ML 2ML SYRINGE ONE (15:12)
[2024-02-24 15:37] LABS: Basophils # (auto) 0 10 ^3/uL (0-0.2); Basophils % (auto) 0.4 % (0.0-2.0); Eosinophils # (auto) 0 10 ^3/uL (0-0.8); Eosinophils % (auto) 0.5 % (0.0-7.0); Hematocrit 30.9 % (36.0-46.0); Hemoglobin 10.5 g/dL (12.2-16.2); Lymphocytes # (auto) 1.2 10 ^3/uL (0.4-5.4); Lymphocytes % (auto) 26.9 % (10.0-50.0); Mean Corpuscular Hemoglobin 31.7 pg (28.0-32.0); Mean Corpuscular Hgb Conc. 34.1 g/dL (32.0-36.0); Mean Corpuscular Volume 92.9 fL (80.0-100.0); Monocytes # (auto) 0.6 10 ^3/uL (0-1.3); Monocytes % (auto) 13.5 % (0.0-12.0); Neutrophils # (auto) 2.7 10 ^3/uL (1.6-8.6); Neutrophils % (auto) 58.7 % (37.0-80.0); Platelet Count (auto) 154 10^3/uL (140-450); Red Blood Cells 3.33 10^6/uL (4.0-5.20); Red Cell Distribution Width 16.1 % (11.8-14.3); White Blood Cell 4.5 10^3/uL (4.4-10.8)
[2024-02-24 15:44] VITALS: PULSE 118; RESP 23; O2SAT 93
[2024-02-24 15:58] LABS: Alanine Aminotransferase 73 U/L (7-40); Albumin 3.4 g/dL (3.2-4.8); Alkaline Phosphatase 143 U/L (46-116); Anion Gap 9 (5-15); Aspartate Aminotransferase 131 U/L (13-40); Bilirubin, Total 1.9 mg/dL (0.2-1.0); Blood Urea Nitrogen 10 mg/dL (9-23); Calcium 8.5 mg/dL (8.7-10.4); Carbon Dioxide 26 mmol/L (20-30); Chloride 107 mmol/L (98-107); Glucose 135 mg/dL (74-106); Potassium 2.7 mmol/L (3.5-5.1); Sodium 142 mmol/L (136-145); Total Protein 6.7 g/dL (5.7-8.2)
[2024-02-24 16:09] LABS: Amphetamine Screen, Urine Neg (NEGATIVE); Barbiturate Scree,Urine Neg (NEGATIVE); Benzodiazephine Screen, Urine Pos (NEGATIVE); Cannabinoid Screen, Urine Neg (NEGATIVE); Cocaine Screen, Urine Neg (NEGATIVE); Opiate Scree,Urine Neg (NEGATIVE); Phencyclidine Screen, Urine Neg (NEGATIVE)
[2024-02-24 17:11] LABS: Blood Alcohol < 3.0 mg/dL (<10)
[2024-02-24] MEDS ORDERED: POTASSIUM EFFERVESENT TAB 25 MEQ GT ONE (17:45)
[2024-02-24 18:31] LABS: Salicylate < 3.0 mg/dL (2.8-20.0)
[2024-02-24] MEDS: POTASSIUM CHL 20MEQ/100ML 100 ML IV SCH (18:38)
[2024-02-24] MEDS ORDERED: ONDANSETRON HCL 4 MG/2 ML VIAL IV PRN (19:30)
[2024-02-24 19:45] VITALS: PULSE 101; RESP 22; O2SAT 96
[2024-02-24 20:24] LABS: Chloride 112 mmol/L (98-107); Potassium 3.1 mmol/L (3.5-5.1); Sodium 143 mmol/L (136-145)
[2024-02-24 20:25] LABS: Anion Gap 7 (5-15); Calcium 7.7 mg/dL (8.7-10.4); Carbon Dioxide 24 mmol/L (20-30)
[2024-02-24 20:30] LABS: BUN/Creatinine Ratio 6.2 (10.0-20.0); Blood Urea Nitrogen 5 mg/dL (9-23); Glucose 115 mg/dL (74-106)
[2024-02-24] MEDS: ACETYLCYSTEINE 200MG/ML IV SOL 10,900 MG in D5W 5% 250 ML IV ONE (21:30)
[2024-02-24] MEDS: SODIUM CHLOR 0.9% PF (SALINE LOCK) 10ML VIAL/SYR IV SCH (22:09)
[2024-02-24] MEDS: ACETYLCYSTEINE 200MG/ML IV SOL 3,600 MG in D5W 5% 500 ML IV ONE (22:50)
[2024-02-25] VITALS (8 sets, daily range): BP systolic 105–121; BP diastolic 56–79; PULSE 74–89; RESP 15–19; TEMP 97.9–98.4; O2SAT 98–99
[2024-02-25] MEDS: ACETYLCYSTEINE 200MG/ML IV SOL 7,300 MG in D5W 5% 1,000 ML IV SCH (04:30)
[2024-02-25 06:43] LABS: Basophils # (auto) 0 10 ^3/uL (0-0.2); Basophils % (auto) 0.7 % (0.0-2.0); Eosinophils # (auto) 0 10 ^3/uL (0-0.8); Eosinophils % (auto) 0.7 % (0.0-7.0); Hemoglobin 11.8 g/dL (12.2-16.2); Lymphocytes # (auto) 1.8 10 ^3/uL (0.4-5.4); Lymphocytes % (auto) 40.1 % (10.0-50.0); Mean Corpuscular Hemoglobin 31.8 pg (28.0-32.0); Mean Corpuscular Hgb Conc. 33.6 g/dL (32.0-36.0); Mean Corpuscular Volume 94.6 fL (80.0-100.0); Monocytes # (auto) 0.8 10 ^3/uL (0-1.3); Monocytes % (auto) 16.9 % (0.0-12.0); Neutrophils # (auto) 1.9 10 ^3/uL (1.6-8.6); Neutrophils % (auto) 41.6 % (37.0-80.0); Nucleated Red Blood Cells % 0.4 %; Platelet Count (auto) 124 10^3/uL (140-450); Red Cell Distribution Width 16.1 % (11.8-14.3); White Blood Cell 4.5 10^3/uL (4.4-10.8)
[2024-02-25 06:56] LABS: Alanine Aminotransferase 59 U/L (7-40); Albumin 3.2 g/dL (3.2-4.8); Alkaline Phosphatase 115 U/L (46-116); Anion Gap 10 (5-15); Aspartate Aminotransferase 95 U/L (13-40); Calcium 7.7 mg/dL (8.7-10.4); Carbon Dioxide 23 mmol/L (20-30); Chloride 106 mmol/L (98-107); Glucose 93 mg/dL (74-106); Potassium 3.3 mmol/L (3.5-5.1); Sodium 139 mmol/L (136-145); Total Protein 6.6 g/dL (5.7-8.2)
[2024-02-25 07:12] LABS: BUN/Creatinine Ratio 6.6 (10.0-20.0); Blood Urea Nitrogen < 5 mg/dL (9-23)
[2024-02-25] MEDS: ENOXAPARIN SOD 40 MG/0.4 ML SYRINGE SC SCH (10:19)
[2024-02-25] MEDS: POTASSIUM CHLORIDE 20 MEQ in D5W/LACTATED RINGERS 1,000 ML IV SCH (14:10)
[2024-02-25] MEDS ORDERED: ACETYLCYSTEINE 200MG/ML IV SOL 7,300 MG in D5W 5% 1,000 ML IV SCH ×2 (18:00→23:15)
[2024-02-25] MEDS: ACETYLCYSTEINE IV SCH (23:24)
[2024-02-25] MEDS: D5W 5% IV SCH (23:24)
[2024-02-26] VITALS (8 sets, daily range): BP systolic 100–121; BP diastolic 61–74; PULSE 73–95; RESP 15–20; TEMP 97.7–99.5; O2SAT 95–100
[2024-02-26] MEDS: MORPHINE SULFATE INJ 2 MG/ml SYRG IV PRN (05:12)
[2024-02-26 06:41] LABS: Basophils # (auto) 0 10 ^3/uL (0-0.2); Basophils % (auto) 0.8 % (0.0-2.0); Eosinophils # (auto) 0.1 10 ^3/uL (0-0.8); Eosinophils % (auto) 2.9 % (0.0-7.0); Hematocrit 32.4 % (36.0-46.0); Hemoglobin 11.2 g/dL (12.2-16.2); Lymphocytes # (auto) 1.4 10 ^3/uL (0.4-5.4); Lymphocytes % (auto) 41.9 % (10.0-50.0); Mean Corpuscular Hemoglobin 32.4 pg (28.0-32.0); Mean Corpuscular Hgb Conc. 34.5 g/dL (32.0-36.0); Monocytes # (auto) 0.5 10 ^3/uL (0-1.3); Monocytes % (auto) 15.5 % (0.0-12.0); Neutrophils # (auto) 1.3 10 ^3/uL (1.6-8.6); Neutrophils % (auto) 38.9 % (37.0-80.0); Platelet Count (auto) 110 10^3/uL (140-450); Red Blood Cells 3.45 10^6/uL (4.0-5.20); Red Cell Distribution Width 15.8 % (11.8-14.3); White Blood Cell 3.3 10^3/uL (4.4-10.8)
[2024-02-26 07:04] LABS: Alanine Aminotransferase 50 U/L (7-40); Alkaline Phosphatase 109 U/L (46-116); Anion Gap 4 (5-15); Aspartate Aminotransferase 77 U/L (13-40); Calcium 8.8 mg/dL (8.7-10.4); Carbon Dioxide 27 mmol/L (20-30); Chloride 107 mmol/L (98-107); Glucose 96 mg/dL (74-106); Magnesium 1.5 mg/dL (1.6-2.6); Potassium 3.9 mmol/L (3.5-5.1); Sodium 138 mmol/L (136-145)
[2024-02-26 07:05] LABS: Bilirubin, Total 1.8 mg/dL (0.2-1.0); Total Protein 6.3 g/dL (5.7-8.2)
[2024-02-26 07:06] LABS: BUN/Creatinine Ratio 6.9 (10.0-20.0); Blood Urea Nitrogen < 5 mg/dL (9-23)
[2024-02-26] MEDS: MAGNESIUM OXIDE 400 MG TAB PO ONE (10:42)
[2024-02-26] MEDS: chlordiazePOXIDE HCL 5 MG CAP PO PRN (10:43)
[2024-02-26 11:35] LABS: INR 1.43 (0.9-1.15); Prothrombin Time 14.8 sec (9.3-11.8)
[2024-02-26] MEDS: MAGNESIUM OXIDE 400 MG TAB PO SCH (21:10)
[2024-02-27] VITALS (8 sets, daily range): BP systolic 109–115; BP diastolic 64–72; PULSE 71–90; RESP 16–18; TEMP 97.4–98.7; O2SAT 95–100
[2024-02-27 07:08] LABS: Basophils # (auto) 0 10 ^3/uL (0-0.2); Basophils % (auto) 0.9 % (0.0-2.0); Eosinophils # (auto) 0.1 10 ^3/uL (0-0.8); Hematocrit 31.5 % (36.0-46.0); Hemoglobin 10.7 g/dL (12.2-16.2); Lymphocytes # (auto) 1.3 10 ^3/uL (0.4-5.4); Lymphocytes % (auto) 42.3 % (10.0-50.0); Mean Corpuscular Hemoglobin 31.5 pg (28.0-32.0); Mean Corpuscular Hgb Conc. 33.8 g/dL (32.0-36.0); Mean Corpuscular Volume 93.3 fL (80.0-100.0); Monocytes # (auto) 0.5 10 ^3/uL (0-1.3); Monocytes % (auto) 16.2 % (0.0-12.0); Neutrophils # (auto) 1.2 10 ^3/uL (1.6-8.6); Neutrophils % (auto) 37.6 % (37.0-80.0); Nucleated Red Blood Cells % 0.7 %; Platelet Count (auto) 123 10^3/uL (140-450); Red Blood Cells 3.38 10^6/uL (4.0-5.20); Red Cell Distribution Width 15.1 % (11.8-14.3); White Blood Cell 3.2 10^3/uL (4.4-10.8)
[2024-02-27 07:27] LABS: Alanine Aminotransferase 45 U/L (7-40); Albumin 3.1 g/dL (3.2-4.8); Alkaline Phosphatase 109 U/L (46-116); Anion Gap 5 (5-15); Aspartate Aminotransferase 80 U/L (13-40); BUN/Creatinine Ratio 7.4 (10.0-20.0); Bilirubin, Total 1.6 mg/dL (0.2-1.0); Blood Urea Nitrogen 5 mg/dL (9-23); Calcium 8.7 mg/dL (8.7-10.4); Carbon Dioxide 28 mmol/L (20-30); Chloride 104 mmol/L (98-107); Glucose 89 mg/dL (74-106); Potassium 3.9 mmol/L (3.5-5.1); Sodium 137 mmol/L (136-145); Total Protein 6.2 g/dL (5.7-8.2)
[2024-02-27] MEDS: FOLIC ACID 1 MG TAB PO ONE (10:12)
[2024-02-27] MEDS: THIAMINE HCL 100 MG TAB PO ONE (10:13)
[2024-02-27] MEDS: MULTIPLE VITAMIN TAB PO ONE (10:13)
[2024-02-27] MEDS: DOCUSATE SOD 100 MG CAP PO PRN (22:05)
[2024-02-27] MEDS: MAALOX PLUS or MAALOX 30 ML PO PRN (23:59)
[2024-02-28] VITALS (8 sets, daily range): BP systolic 100–116; BP diastolic 57–72; PULSE 63–90; RESP 15–18; TEMP 97.3–98.8; O2SAT 97–100
[2024-02-28 05:09] LABS: Basophils # (auto) 0 10 ^3/uL (0-0.2); Basophils % (auto) 0.8 % (0.0-2.0); Eosinophils # (auto) 0.1 10 ^3/uL (0-0.8); Eosinophils % (auto) 2.3 % (0.0-7.0); Hemoglobin 11.7 g/dL (12.2-16.2); Lymphocytes # (auto) 1.5 10 ^3/uL (0.4-5.4); Lymphocytes % (auto) 38.6 % (10.0-50.0); Mean Corpuscular Hemoglobin 32.4 pg (28.0-32.0); Mean Corpuscular Hgb Conc. 34.5 g/dL (32.0-36.0); Mean Corpuscular Volume 93.7 fL (80.0-100.0); Monocytes # (auto) 0.5 10 ^3/uL (0-1.3); Monocytes % (auto) 13.1 % (0.0-12.0); Neutrophils # (auto) 1.7 10 ^3/uL (1.6-8.6); Neutrophils % (auto) 45.2 % (37.0-80.0); Nucleated Red Blood Cells % 0.1 %; Platelet Count (auto) 140 10^3/uL (140-450); Red Blood Cells 3.63 10^6/uL (4.0-5.20); Red Cell Distribution Width 15.7 % (11.8-14.3); White Blood Cell 3.8 10^3/uL (4.4-10.8)
[2024-02-28 05:24] LABS: Alanine Aminotransferase 46 U/L (7-40); Alkaline Phosphatase 120 U/L (46-116); Anion Gap 3 (5-15); BUN/Creatinine Ratio 10.8 (10.0-20.0); Blood Urea Nitrogen 8 mg/dL (9-23); Calcium 9.3 mg/dL (8.7-10.4); Carbon Dioxide 29 mmol/L (20-30); Chloride 104 mmol/L (98-107); Glucose 90 mg/dL (74-106); Magnesium 1.8 mg/dL (1.6-2.6); Potassium 4.2 mmol/L (3.5-5.1); Sodium 136 mmol/L (136-145)
[2024-02-28 05:25] LABS: Albumin 3.4 g/dL (3.2-4.8); Aspartate Aminotransferase 83 U/L (13-40)
[2024-02-28 05:26] LABS: Bilirubin, Total 1.8 mg/dL (0.2-1.0); Total Protein 6.8 g/dL (5.7-8.2)
[2024-02-28] MEDS: MULTIPLE VITAMIN TAB PO SCH (09:17)
[2024-02-28] MEDS: FOLIC ACID 1 MG TAB PO SCH (09:17)
[2024-02-28] MEDS: THIAMINE HCL 100 MG TAB PO SCH (09:17)
[2024-02-28] MEDS: LACTULOSE 20Gm/30ML SOLN PO PRN (18:08)
[2024-02-28] MEDS: DOCUSATE SOD 100 MG CAP PO SCH (22:18)
[2024-02-29] VITALS (7 sets, daily range): BP systolic 101–120; BP diastolic 56–68; PULSE 68–89; RESP 15–18; TEMP 97.3–98.4; O2SAT 95–98
[2024-02-29 06:09] LABS: Basophils # (auto) 0.1 10 ^3/uL (0-0.2); Eosinophils # (auto) 0.1 10 ^3/uL (0-0.8); Eosinophils % (auto) 1.6 % (0.0-7.0); Hemoglobin 11.6 g/dL (12.2-16.2); Lymphocytes # (auto) 1.5 10 ^3/uL (0.4-5.4); Mean Corpuscular Hemoglobin 31.7 pg (28.0-32.0); Mean Corpuscular Hgb Conc. 34.1 g/dL (32.0-36.0); Monocytes # (auto) 0.5 10 ^3/uL (0-1.3); Monocytes % (auto) 9.2 % (0.0-12.0); Neutrophils # (auto) 2.9 10 ^3/uL (1.6-8.6); Neutrophils % (auto) 58.2 % (37.0-80.0); Nucleated Red Blood Cells % 0.1 %; Platelet Count (auto) 170 10^3/uL (140-450); Red Blood Cells 3.66 10^6/uL (4.0-5.20); Red Cell Distribution Width 15.7 % (11.8-14.3)
[2024-02-29 06:26] LABS: Alanine Aminotransferase 45 U/L (7-40); Albumin 3.4 g/dL (3.2-4.8); Alkaline Phosphatase 130 U/L (46-116); Anion Gap 4 (5-15); Aspartate Aminotransferase 87 U/L (13-40); BUN/Creatinine Ratio 11.4 (10.0-20.0); Blood Urea Nitrogen 8 mg/dL (9-23); Calcium 9.5 mg/dL (8.7-10.4); Carbon Dioxide 28 mmol/L (20-30); Chloride 104 mmol/L (98-107); Glucose 88 mg/dL (74-106); Potassium 3.9 mmol/L (3.5-5.1); Sodium 136 mmol/L (136-145)
[2024-02-29 06:28] LABS: Bilirubin, Total 1.3 mg/dL (0.2-1.0)
[2024-02-29] MEDS: PANTOPRAZOLE 40 MG TAB PO SCH (15:06)
[2024-03-01] VITALS (8 sets, daily range): BP systolic 108–119; BP diastolic 62–70; PULSE 62–87; RESP 17–20; TEMP 97.3–98.3; O2SAT 95–100
[2024-03-01 07:20] LABS: Alanine Aminotransferase 50 U/L (7-40); Albumin 3.4 g/dL (3.2-4.8); Alkaline Phosphatase 124 U/L (46-116); Anion Gap 3 (5-15); Aspartate Aminotransferase 97 U/L (13-40); Bilirubin, Total 1.3 mg/dL (0.2-1.0); Blood Urea Nitrogen 8 mg/dL (9-23); Calcium 9.2 mg/dL (8.7-10.4); Carbon Dioxide 28 mmol/L (20-30); Chloride 105 mmol/L (98-107); Glucose 93 mg/dL (74-106); Potassium 4.1 mmol/L (3.5-5.1); Sodium 136 mmol/L (136-145); Total Protein 6.8 g/dL (5.7-8.2)
[2024-03-01] MEDS: CITALOPRAM HYDROBR 20 MG TAB PO ONE (13:12)
[2024-03-02] VITALS (8 sets, daily range): BP systolic 101–117; BP diastolic 53–70; PULSE 69–91; RESP 16–20; TEMP 97.5–98.8; O2SAT 95–100
[2024-03-02] MEDS ORDERED: CITALOPRAM HYDROBR 20 MG TAB PO SCH (10:00)
[2024-03-02] MEDS: CITALOPRAM HYDROBR 20 MG TAB PO SCH (11:04)
[2024-03-02] MEDS: DICYCLOMINE HCL 10 MG CAP PO PRN (16:59)
[2024-03-03] VITALS (8 sets, daily range): BP systolic 106–124; BP diastolic 57–70; PULSE 64–88; RESP 16–18; TEMP 97.7–98.6; O2SAT 99–100
[2024-03-03 07:04] LABS: Basophils # (auto) 0 10 ^3/uL (0-0.2); Basophils % (auto) 0.8 % (0.0-2.0); Eosinophils # (auto) 0.1 10 ^3/uL (0-0.8); Eosinophils % (auto) 1.3 % (0.0-7.0); Hematocrit 35.1 % (36.0-46.0); Hemoglobin 11.9 g/dL (12.2-16.2); Lymphocytes # (auto) 1.5 10 ^3/uL (0.4-5.4); Lymphocytes % (auto) 31.3 % (10.0-50.0); Mean Corpuscular Hemoglobin 31.8 pg (28.0-32.0); Mean Corpuscular Hgb Conc. 33.8 g/dL (32.0-36.0); Mean Corpuscular Volume 94.2 fL (80.0-100.0); Monocytes # (auto) 0.4 10 ^3/uL (0-1.3); Neutrophils # (auto) 2.8 10 ^3/uL (1.6-8.6); Neutrophils % (auto) 58.6 % (37.0-80.0); Nucleated Red Blood Cells % 0.1 %; Platelet Count (auto) 175 10^3/uL (140-450); Red Blood Cells 3.72 10^6/uL (4.0-5.20); Red Cell Distribution Width 15.8 % (11.8-14.3); White Blood Cell 4.8 10^3/uL (4.4-10.8)
[2024-03-03 07:21] LABS: Alanine Aminotransferase 53 U/L (7-40); Alkaline Phosphatase 122 U/L (46-116); Anion Gap 5 (5-15); BUN/Creatinine Ratio 10.3 (10.0-20.0); Blood Urea Nitrogen 7 mg/dL (9-23); Calcium 9.8 mg/dL (8.7-10.4); Carbon Dioxide 28 mmol/L (20-30); Chloride 102 mmol/L (98-107); Glucose 81 mg/dL (74-106); Potassium 4.1 mmol/L (3.5-5.1); Sodium 135 mmol/L (136-145)
[2024-03-03 07:23] LABS: Albumin 3.7 g/dL (3.2-4.8); Aspartate Aminotransferase 106 U/L (13-40); Bilirubin, Direct 0.8 mg/dL (<0.3); Bilirubin, Total 1.4 mg/dL (0.2-1.0); Total Protein 7.4 g/dL (5.7-8.2)
[2024-03-03] MEDS ORDERED: IBUPROFEN 800 MG TAB PO PRN (17:00)
[2024-03-03] MEDS: IBUPROFEN 800 MG TAB PO PRN (18:30)
[2024-03-04 05:00] VITALS: BP 116/66; PULSE 81; RESP 18; TEMP 97.7; O2SAT 97
[2024-03-04 05:50] LABS: Albumin 3.4 g/dL (3.2-4.8); Bilirubin, Direct 0.7 mg/dL (<0.3); Bilirubin, Total 1.2 mg/dL (0.2-1.0); Total Protein 6.9 g/dL (5.7-8.2)
[2024-03-04 08:00] VITALS: PULSE 78
[2024-03-04 09:00] VITALS: BP 113/69; PULSE 86; RESP 18; TEMP 98.7; O2SAT 96
[2024-03-04 17:00] VITALS: BP 113/57; PULSE 81; RESP 15; TEMP 98.5; O2SAT 99
[2024-03-04 20:00] VITALS: PULSE 78
[2024-03-04 21:00] VITALS: BP 112/62; PULSE 78; RESP 15; TEMP 98.5; O2SAT 96
[2024-03-05] VITALS (8 sets, daily range): BP systolic 103–118; BP diastolic 62–74; PULSE 67–92; RESP 15–18; TEMP 97.6–98.7; O2SAT 95–98
[2024-03-06 01:00] VITALS: BP 115/78; PULSE 79; RESP 18; TEMP 98.5; O2SAT 97
[2024-03-06 05:00] VITALS: BP 112/68; PULSE 77; RESP 18; TEMP 98.3; O2SAT 98
[2024-03-06 09:00] VITALS: BP 122/66; PULSE 75; RESP 17; TEMP 98.3; O2SAT 98
[2024-03-06 17:00] VITALS: BP 120/61; PULSE 80; RESP 17; TEMP 98.9; O2SAT 99
[2024-03-06 20:00] VITALS: PULSE 81; RESP 17; O2SAT 97
[2024-03-06 21:00] VITALS: BP 111/59; PULSE 81; RESP 17; TEMP 98.3; O2SAT 98
[2024-03-07] VITALS (8 sets, daily range): BP systolic 106–122; BP diastolic 61–77; PULSE 67–91; RESP 17–20; TEMP 97.6–98.8; O2SAT 94–98
[2024-03-07 08:26] LABS: Basophils # (auto) 0 10 ^3/uL (0-0.2); Basophils % (auto) 0.8 % (0.0-2.0); Eosinophils # (auto) 0.1 10 ^3/uL (0-0.8); Eosinophils % (auto) 1.2 % (0.0-7.0); Hemoglobin 11.5 g/dL (12.2-16.2); Lymphocytes # (auto) 1.6 10 ^3/uL (0.4-5.4); Lymphocytes % (auto) 35.6 % (10.0-50.0); Mean Corpuscular Hemoglobin 31.5 pg (28.0-32.0); Mean Corpuscular Hgb Conc. 33.9 g/dL (32.0-36.0); Mean Corpuscular Volume 92.8 fL (80.0-100.0); Monocytes # (auto) 0.5 10 ^3/uL (0-1.3); Monocytes % (auto) 11.5 % (0.0-12.0); Neutrophils # (auto) 2.3 10 ^3/uL (1.6-8.6); Neutrophils % (auto) 50.9 % (37.0-80.0); Platelet Count (auto) 153 10^3/uL (140-450); Red Blood Cells 3.66 10^6/uL (4.0-5.20); Red Cell Distribution Width 16.4 % (11.8-14.3); White Blood Cell 4.6 10^3/uL (4.4-10.8)
[2024-03-07 08:46] LABS: Alanine Aminotransferase 46 U/L (7-40); Albumin 3.6 g/dL (3.2-4.8); Alkaline Phosphatase 106 U/L (46-116); Anion Gap 6 (5-15); Aspartate Aminotransferase 77 U/L (13-40); BUN/Creatinine Ratio 13.1 (10.0-20.0); Bilirubin, Direct 0.6 mg/dL (<0.3); Bilirubin, Total 1.2 mg/dL (0.2-1.0); Blood Urea Nitrogen 8 mg/dL (9-23); Calcium 9.5 mg/dL (8.7-10.4); Carbon Dioxide 27 mmol/L (20-30); Chloride 106 mmol/L (98-107); Glucose 79 mg/dL (74-106); Potassium 3.9 mmol/L (3.5-5.1); Sodium 139 mmol/L (136-145)
[2024-03-07] MEDS: MAGNESIUM OXIDE 400 MG TAB PO SCH (10:02)
[2024-03-07 14:06] LABS: Hepatitis B Surface Antigen Negative (Negative)
[2024-03-07 14:27] LABS: Hepatitis A Ab IgM Negative; Hepatitis B Core IgM Negative
[2024-03-07 14:28] LABS: Hepatitis C Antibody Negative (Negative)
[2024-03-08] VITALS: BP 109/62; PULSE 76; RESP 17; TEMP 98.2; O2SAT 93
[2024-03-08 05:00] VITALS: BP 113/62; PULSE 16; RESP 72; TEMP 97.8; O2SAT 96
[2024-03-08 08:00] VITALS: PULSE 72; RESP 18; O2SAT 96
[2024-03-08 09:00] VITALS: BP 115/61; PULSE 72; RESP 18; TEMP 98.8; O2SAT 96
[2024-03-08 13:00] VITALS: BP 130/70; PULSE 85; RESP 18; TEMP 98.8; O2SAT 97
[2024-03-08 19:40] VITALS: BP 123/67; PULSE 96; RESP 18; TEMP 98.8; O2SAT 96
== END 2024-03-08 17:50 | DRG 817 ==
LOC: ER 14:31 → EDBD 14:31 → TELE 19:28 → TELE-EAST 02-25 08:11 → EAST 03-06 03:11
PROVIDERS: ADMIT Internal Medicine; ATTEND Internal Medicine Geriatric Medicine
DX: T42.4X2A Poisoning by benzodiazepines, intentional self-harm, initial encounter (principal); G92.8 Other toxic encephalopathy; E83.42 Hypomagnesemia; T14.91XA Suicide attempt, initial encounter; E87.6 Hypokalemia; F10.129 Alcohol abuse with intoxication, unspecified; F10.139 Alcohol abuse with withdrawal, unspecified; R79.89 Other specified abnormal findings of blood chemistry; K59.00 Constipation, unspecified; K76.0 Fatty (change of) liver, not elsewhere classified; F20.9 Schizophrenia, unspecified; K70.30 Alcoholic cirrhosis of liver without ascites; F32.9 Major depressive disorder, single episode, unspecified; Y90.9 Presence of alcohol in blood, level not specified; Z90.49 Acquired absence of other specified parts of digestive tract; Y92.89 Other specified places as the place of occurrence of the external cause; Z79.2 Long term (current) use of antibiotics; Z79.899 Other long term (current) drug therapy; Z56.0 Unemployment, unspecified; Z82.49 Family history of ischemic heart disease and other diseases of the circulatory system; Z83.49 Family history of other endocrine, nutritional and metabolic diseases
CPT/HCPCS: 36415; 74176; 76705; 80048; 80053; 80074; 80076; 80307; 80320; 80329; 83735; 84484; 84702; 85025; 85610; G0378; J3480; J7060

== ENCOUNTER 2024-10-30 05:23 | Emergency (ER) | payer MEDICAID ==
[~2024-10-30] VITALS: Ht 162.6 cm; Wt 62.2 kg
[2024-10-30] MEDS ORDERED: CEPH250S PO (06:14)
--- NOTE | 2024-10-30 06:22 | ED.PDOC ---
History of Present Illness HPI Comments 34F presents to the ER w/ mother and w/ prior MHx of Depression, Schizophrenia; SHx of Cholecystectomy and the c/c of Cough w/ Blood. Pt reports on recently having a tonsillectomy at [facility] on of 10/27/24, and was given pain Meds after the procedure. Pt reports only having cough w/blood and blood clot, and currently has dizziness w/ SOB. Pt notes that she did take Tylenol this morning before arrival to the ED. Social Hx of Severe alcohol use, but denies tobacco and substance use. Denies chills, fever, N/V/D, CP. No other associated symptoms, modifiers, recent injuries or sick contacts present at this time. Chief Complaint: Cough Time Seen by MD: 06:10 Primary Care Provider: UNKNOWN Reviewed Notes: Nurses Notes, Medications, Allergies Allergies: Coded Allergies: NO KNOWN ALLERGIES (Unverified , 09/22/14) Home Meds Active Scripts Cephalexin (Cephalexin) 250 Mg/5 Ml Genny, 10 ML PO BID, #200 ML Prov:CHRISTI COLINDRES MD 10/30/24 Information Source: Patient Mode of Arrival: Ambulatory Severity: Moderate Timing: Minutes Duration: Since onset, Minutes Prehospital treatment: None Past Medical History PAST MEDICAL HISTORY: Depression, Schizophrenia Surgical History: Cholecystectomy, Tonsillectomy (Recent on 10/28/23) SUPERVISOR ACCOUNTS RECEIVABLE History: No Pertinent SUPERVISOR ACCOUNTS RECEIVABLE History Family History Family History: Reviewed,noncontributory to illness, Unknown Social History Smoker: Non-Smoker Alcohol: Heavy Drugs: Denies Drug Use Lives In: Home Constitutional: denies: chills, diaphoresis, fatigue, fever, malaise, sweats, weakness, others EENTM: denies: blurred vision, double vision, ear bleeding, ear discharge, ear drainage, ear pain, ear ringing, eye pain, eye redness, hearing loss, mouth pain, mouth swelling, nasal discharge, nose bleeding, nose congestion, nose pain, photophobia, tearing, throat pain, throat swelling, voice changes, others Respiratory: reports: cough, hemoptysis, shortness of breath; denies: orthopnea, SOB at rest, SOB with excertion, stridor, wheezing, others Cardiovascular: denies: chest pain, dizzy spells, diaphoresis, Dyspnea on exertion, edema, irregular heart beat, left arm pain, lightheadedness, palpitations, PND, syncope, others Gastrointestinal: denies: abdomen distended, abdominal pain, blood streaked bowels, constipated, diarrhea, dysphagia, difficulty swallowing, hematemesis, melena, nausea, poor appetite, poor fluid intake, rectal bleeding, rectal pain, vomiting, others Genitourinary: denies: abnormal vagina bleeding, burning, dyspareunia, dysuria, flank pain, frequency, hematuria, incontinence, pain, , vagina discharge, urgency, others Neurological: denies: dizziness, fainting, headache, left sided numbness, left sided weakness, numbness, paresthesia, pre-existing deficit, right sided numbness, right sided weakness, seizure, speech problems, tingling, tremors, weakness, others Musculoskeletal: denies: back pain, gout, joint pain, joint swelling, muscle pa in, muscle stiffness, neck pain, others Integumetry: denies: bruises, change in color, change in hair/nails, dryness, laceration, lesions, lumps, rash, wounds, others Allergic/Immunocompromised: denies: Difficulty Healing, Frequent Infections, Hives, Itching, others Hematologic/Lymphatic: denies: anemia, blood clots, easy bleeding, easy bruising, swollen glands, others Endocrine: denies: excessive hunger, excessive sweating, excessive thirst, excessive urination, flushing, intolerance to cold, intolerance to heat, unexplained weight gain, unexplained weight loss, others Psychiatric: denies: anxiety, bipolar disorder, depression, hopeless, panic disorder, schizophrenia, sleepless, suicidal, others All Other Systems: Reviewed and Negative Physical Exam General Appearance: No Apparent Distress HEENT: TMs Normal, Other (Mild exudate on the pharyngeal region) Neck: Full Range of Motion, Non-Tender, Normal, Normal Inspection Respiratory: Chest Non-Tender, Lungs Clear, No Accessory Muscle Use, No Respiratory Distress, Normal Breath Sounds Cardiovascular: No Edema, No JVD, No Murmur, No Gallop, Normal Peripheral Pulses, Regular Rate/Rhythm Breast Exam: Deferred Gastrointestinal: No Organomegaly, Non Tender, No Pulsatile Mass, Normal Bowel Sounds, Soft Genitalia: Deferred Pelvic: Deferred Rectal: Deferred Extremities: No calf tenderness, Normal capillary refill, Normal inspection, Normal range of motion, Non-tender, No pedal edema Musculoskeletal : Apperance: Normal Neurologic: Alert, network operations center engineer II-XII nml as Tested, No Motor Deficits, Normal Affect, Normal Mood, No Sensory Deficits Cerebellar Function: Normal Reflexes: Normal Skin: Dry, Normal Color, Warm Lymphatic: No Adenopathy Was a procedure done? Was a procedure done?: No Differential Dx Considerations may include: Status post tonsillectomy, seizure, alcohol withdrawal, electrolyte imbalance X-Ray, Labs, Meds, VS Vital Signs Date Time Temp Pulse Resp B/P (MAP) Pulse Ox O2 Delivery O2 Flow Rate FiO2 10/30/24 06:25 98.1 71 13 103/65 (78) 96 98.1 10/30/24 05:39 18 98 Room Air* 0 21 10/30/24 05:39 98.2 89 18 140/78 (98) 98 98.2 Lab Test 10/30/24 06:55 Range/Units White Blood Count 9.5 4.4-10.8 10^3/uL Red Blood Count 4.24 4.0-5.20 10^6/uL Hemoglobin 13.2 12.2-16.2 g/dL Hematocrit 41.3 36.0-46.0 % Mean Corpuscular Volume 97.5 80.0-100.0 fL Mean Corpuscular Hemoglobin 31.2 28.0-32.0 pg Mean Corpuscular Hemoglobin Concent 32.0 32.0-36.0 g/dL Red Cell Distribution Width 18.1 H 11.8-14.3 % Platelet Count 190 140-450 10^3/uL Mean Platelet Volume 8.1 6.9-10.8 fL Neutrophils (%) (Auto) 63.5 37.0-80.0 % Lymphocytes (%) (Auto) 29.7 10.0-50.0 % Monocytes (%) (Auto) 5.6 0.0-12.0 % Eosinophils (%) (Auto) 0.8 0.0-7.0 % Basophils (%) (Auto) 0.4 0.0-2.0 % Neutrophils # (Auto) 6.0 1.6-8.6 10 ^3/uL Lymphocytes # (Auto) 2.8 0.4-5.4 10 ^3/uL Monocytes # (Auto) 0.5 0-1.3 10 ^3/uL Eosinophils # (Auto) 0.1 0-0.8 10 ^3/uL Basophils # (Auto) 0 0-0.2 10 ^3/uL Nucleated Red Blood Cells 0.1 % Prothrombin Time Pending Prothrombin Time INR Pending Activated Partial Thromboplast Time Pending Sodium Level 138 136-145 mmol/L Potassium Level 3.3 L 3.5-5.1 mmol/L Chloride Level 107 98-107 mmol/L Carbon Dioxide Level 21 20-31 mmol/L Anion Gap 10 5-15 Blood Urea Nitrogen Pending Creatinine Pending Glomerular Filtration Rate Calc Pending BUN/Creatinine Ratio Pending Serum Glucose Pending Calcium Level 9.5 8.7-10.4 mg/dL Plasma/Serum Blood Alcohol Pending Current Medications Medications (Trade) Dose Ordered Sig/Jesu Route Start Time Stop Time Status Last Admin Sodium Chloride 1,000 ml @ 1,000 mls/hr Q1H ONCE IV 10/30/24 06:30 10/30/24 07:29 10/30/24 06:41 IV Hep-Lock was established The patient was given 1 L bolus of normal saline The patient's CBC and chemistry panel are within normal limits except for mild hypokalemia The patient had an episode where she shaking in the waiting room but it was not a seizure. The patient denies any history of seizures at this time The patient was at her baseline and we are going to discharge her with her mother. The patient will return to the emergency department's condition worsens The patient was started on Keflex The patient was told to follow up with her surgeon who did the tonsillectomy. Time of 1ST Reevaluation: 06:40 Reevaluation 1ST: Unchanged Patient Education/Counseling: Diagnosis, Treatment, Prognosis, Need For Follow Up Family Education/Counseling: Diagnosis, Treatment, Prognosis, Need For Follow Up Departure 1 Departure Time of Disposition: 07:23 Impression: Primary Impression: Status post tonsillectomy Additional Impression: Alcohol abuse Disposition: 01 HOME / SELF CARE / HOMELESS Condition: Fair e-Prescriptions Cephalexin (Cephalexin) 250 Mg/5 Ml Genny 10 ML PO BID, #200 ML Prov: CHRISTI COLINDRES MD 10/30/24 Discharged With: Self, Relative (Mother) Critical Care Note Critical Care Time?: No Stability Stability form required: No Heart Score Heart Score: Heart Score Response (Comments) Value History N/A 0 EKG N/A 0 Age N/A 0 Risk Factors N/A 0 Troponin N/A 0 Total 0 I personally scribed for CHRISTI COLINDRES MD ([email or web address]) on 10/30/24 at 06:22. Electronically submitted by Tomas Marie ([email or web address]). CHRISTI COLINDRES MD October 30, 2024 06:22
[2024-10-30] MEDS: LORazepam 2MG/ML-1ML VIAL IV ONE (06:37)
[2024-10-30] MEDS: SODIUM CHLORIDE 0.9% 1,000 ML IV ONE (06:41)
[2024-10-30 07:05] LABS: Basophils # (auto) 0 10 ^3/uL (0-0.2); Basophils % (auto) 0.4 % (0.0-2.0); Eosinophils # (auto) 0.1 10 ^3/uL (0-0.8); Eosinophils % (auto) 0.8 % (0.0-7.0); Hematocrit 41.3 % (36.0-46.0); Hemoglobin 13.2 g/dL (12.2-16.2); Lymphocytes # (auto) 2.8 10 ^3/uL (0.4-5.4); Lymphocytes % (auto) 29.7 % (10.0-50.0); Mean Corpuscular Hemoglobin 31.2 pg (28.0-32.0); Mean Corpuscular Volume 97.5 fL (80.0-100.0); Monocytes # (auto) 0.5 10 ^3/uL (0-1.3); Monocytes % (auto) 5.6 % (0.0-12.0); Neutrophils % (auto) 63.5 % (37.0-80.0); Nucleated Red Blood Cells % 0.1 %; Platelet Count (auto) 190 10^3/uL (140-450); Red Blood Cells 4.24 10^6/uL (4.0-5.20); Red Cell Distribution Width 18.1 % (11.8-14.3); White Blood Cell 9.5 10^3/uL (4.4-10.8)
[2024-10-30 07:12] LABS: Chloride 107 mmol/L (98-107); Sodium 138 mmol/L (136-145)
[2024-10-30 07:13] LABS: Anion Gap 10 (5-15); Calcium 9.5 mg/dL (8.7-10.4); Carbon Dioxide 21 mmol/L (20-31)
[2024-10-30 07:15] LABS: Potassium 3.3 mmol/L (3.5-5.1)
[2024-10-30 07:18] LABS: BUN/Creatinine Ratio 14.5 (10.0-20.0); Blood Urea Nitrogen 9 mg/dL (9-23); Glucose 91 mg/dL (74-106)
[2024-10-30 07:22] VITALS: BP 110/66; TEMP 98.2
[2024-10-30 07:23] VITALS: PULSE 80; RESP 16; O2SAT 97
[2024-10-30 07:23] LABS: Blood Alcohol < 3.0 mg/dL (<10)
[2024-10-30 07:26] LABS: INR 1.22 (0.9-1.15); Partial Thromboplastin Time 27.7 SEC (24.5-34.5); Prothrombin Time 12.7 sec (9.3-11.8)
== END 2024-10-30 07:34 | disposition home or self-care (01) ==
LOC: ER 05:23
DX: F10.10 Alcohol abuse, uncomplicated (principal); F20.9 Schizophrenia, unspecified; F32.A Depression, unspecified; Z90.49 Acquired absence of other specified parts of digestive tract; Z90.89 Acquired absence of other organs; Z79.899 Other long term (current) drug therapy; Y90.0 Blood alcohol level of less than 20 mg/100 ml
CPT/HCPCS: 36415; 80048; 80320; 85025; 85610; 85730; 96360; 99283; J7030